=== PATIENT | female | born 1980 | race Caucasian/White ===

== ENCOUNTER 2021-02-05 10:45 | Inpatient (IN) | payer BC ==
[2021-02-13] MEDS ORDERED: Scopolamine 1.5 MG Transdermal Patch TOP ONE (06:24)
[2021-02-13] MEDS ORDERED: Celecoxib 200 MG Cap PO ONE (06:25)
[2021-02-13] MEDS ORDERED: Acetaminophen 500 MG Tab PO ONE (06:25)
[2021-02-13] MEDS ORDERED: Dextrose 5%-Lactated Ringers 1,000 ML IV SCH ×2 (06:30→11:30)
[2021-02-13] MEDS ORDERED: cefOXitin 2 GM Vial ONE (06:41)
[2021-02-13] MEDS ORDERED: Meropenem 500 MG SDV ONE (06:41)
[2021-02-13] MEDS ORDERED: cefOXitin 2 GM in Sodium Chloride 0.9% 50 ML IV ONE ×2 (07:00→08:00)
[2021-02-13] MEDS ORDERED: Ondansetron 4 MG/2 ML SDV ONE (07:08)
[2021-02-13] MEDS ORDERED: Neostigmine Methylsulfate 1 MG/ML 5 ML Syringe ONE (07:08)
[2021-02-13] MEDS ORDERED: Dexamethasone 4 MG/ML SDV ONE (07:08)
[2021-02-13] MEDS ORDERED: Succinylcholine 200 MG/10 ML MDV ONE (07:08)
[2021-02-13] MEDS ORDERED: Glycopyrrolate 0.2 MG/ML 5 ML MDV ONE (07:08)
[2021-02-13] MEDS ORDERED: fentaNYL 250 MCG/5 ML SDV ONE ×2 (07:08→08:25)
[2021-02-13] MEDS ORDERED: Rocuronium 50 MG/5 ML Vial ONE (07:08)
[2021-02-13] MEDS ORDERED: Propofol 200 MG/20 ML SDV ONE (07:08)
[2021-02-13] MEDS ORDERED: Ketamine 18 MG in Sodium Chloride 0.9% 19.82 ML IV SCH (08:00)
[2021-02-13] MEDS ORDERED: Ketamine 500 MG/5 ML MDV IV SCH (08:00)
[2021-02-13] MEDS ORDERED: Lactated Ringers 1,000 ML ONE (08:41)
[2021-02-13] MEDS ORDERED: Labetalol 20 MG/4 ML Syringe ONE (08:52)
[2021-02-13] MEDS ORDERED: CHECK SCOPOLAMINE PATCH TOP SCH (09:00)
[2021-02-13] MEDS ORDERED: Cyclobenzaprine 10 MG Tab PO PRN (11:29)
[2021-02-13] MEDS: hydrOXYzine HCL 100 MG/2 ML SDV IM PRN ×2 (11:38→19:40)
[2021-02-13] MEDS ORDERED: HYDROmorphone 0.5 MG/0.5 ML Syringe IVPUSH PRN (12:00)
[2021-02-13] MEDS ORDERED: traMADol 50 MG Tab PO PRN (12:00)
[2021-02-13] MEDS ORDERED: Metoclopramide 10 MG/2 ML SDV IVPUSH PRN (12:00)
[2021-02-13] MEDS ORDERED: HYDROmorphone 1 MG/ML Syringe IV PRN (12:00)
[2021-02-13] MEDS ORDERED: Ondansetron 4 MG/2 ML SDV IVPUSH PRN (12:00)
[2021-02-13] MEDS ORDERED: Acetaminophen 500 MG Tab PO PRN (12:00)
[2021-02-13] MEDS ORDERED: oxyCODONE 5 MG Tab PO PRN (12:00)
[2021-02-13] MEDS ORDERED: diphenhydrAMINE 50 MG/ML SDV IVPUSH PRN (12:00)
[2021-02-13] MEDS: Labetalol 20 MG/4 ML Syringe IVPUSH PRN ×2 (13:09→19:32)
[2021-02-13] MEDS ORDERED: Pantoprazole 40 MG Vial IVPUSH SCH (14:00)
[2021-02-13] MEDS: Acetaminophen 500 MG Tab PO SCH ×2 (14:10→21:26)
[2021-02-13] MEDS: cefOXitin 2 GM in Sodium Chloride 0.9% 50 ML IV SCH ×2 (14:10→19:21)
[2021-02-13] MEDS: MVI, Adult with Vitamin K 10 ML, Thiamine 200 MG, Zinc/Copper/Manganese/Selenium 1 ML i... IV SCH ×8 (14:10→15:00)
[2021-02-13] MEDS: Heparin Sodium 5,000 Units/ML Vial SUBCUT SCH (17:48)
[2021-02-13] MEDS: Pravastatin 20 MG Tab PO SCH (21:26)
[2021-02-14] MEDS: cefOXitin 2 GM in Sodium Chloride 0.9% 50 ML IV SCH ×3 (01:22→14:41)
[2021-02-14] MEDS: Dextrose 5%-Lactated Ringers 1,000 ML IV SCH ×2 (03:35→10:49)
[2021-02-14] MEDS: Acetaminophen 500 MG Tab PO SCH ×3 (05:09→21:00)
[2021-02-14] MEDS: Heparin Sodium 5,000 Units/ML Vial SUBCUT SCH ×2 (06:00→17:44)
[2021-02-14] MEDS ORDERED: Iopamidol 612 MG/ML 50 ML SDV PO STA (06:26)
[2021-02-14] MEDS ORDERED: Ondansetron 4 MG Tab.DIS PO PRN (06:27)
[2021-02-14] MEDS ORDERED: hydrOXYzine HCl 25 MG Tab PO PRN (06:27)
--- NOTE | 2021-02-14 07:06 | PN ---
DATE OF SERVICE: 02/14/2021 Angle is postop day 1 following a Merlene-en-Y gastric bypass surgery. The pain has been controlled per energy protocol. She did have a temp max of 101.4. It did go down to 101.1. She has no upper respiratory infection signs and symptoms. No burning with urination. Denies any source of infection when questioned. Oral intake was adequate. Output 2200. MECCA drain put out 40 mL. Remainder of review of systems negative for any pertinent positives or negatives. OBJECTIVE: Angle is a pleasant 40-year-old female. TPR per EMR. Computers were down. HEENT: Negative. NECK: Supple. HEART: Regular rate and rhythm. LUNGS: Clear. ABDOMEN: Dressings dry and intact. MECCA drain intact draining serosanguineous drainage. EXTREMITIES: Without peripheral edema. ASSESSMENT: Diagnostic laparoscopy with: 1. Laparoscopic Merlene-en-Y gastric bypass surgery. 2. Liver biopsy. 3. Repair of diaphragmatic hernia. 4. Excision of mediastinal lipoma. POSTOPERATIVE DIAGNOSES: 1. Morbid obesity. 2. Hepatomegaly. 3. Diaphragmatic hernia. 4. Mediastinal lipoma. PLAN: 1. Decrease IV to 100 mL per hour. 2. Step 2 gastric bypass diet with no cereal. 3. Atarax 50 mg q.4 hours p.r.n. pain per energy protocol. 4. Zofran 4 mg ODT q.4 hours p.r.n. nausea. 5. Communication order, 3 med cups per hour, record at bedside. 6. Dressing off may shower. 7. Continue use of incentive spirometer and ambulation. 8. We will evaluate p.r.n. or in a.m. Krystina Zhou PA-C /[id number]
[2021-02-14] MEDS: Celecoxib 200 MG Cap PO SCH ×2 (07:59→21:00)
[2021-02-14] MEDS: SCOPOLAMINE PATCH CHECK TOP SCH (07:59)
[2021-02-14] MEDS: Escitalopram 20 MG Tab PO SCH (07:59)
--- NOTE | 2021-02-14 09:48 | CR ---
[facility] HISTORY: Postbariatric surgery FINDINGS: Patient swallowed water-soluble contrast. Upright views of the abdomen show no evidence of extravasation or obstruction. There is a surgical drain in the left upper quadrant. IMPRESSION: Status post bariatric surgery No extravasation or obstruction seen
[2021-02-14] MEDS ORDERED: Pantoprazole 40 MG Delayed-Release Granules 1 Packet PO SCH (14:00)
[2021-02-14] MEDS ORDERED: MVI, Adult with Vitamin K 10 ML, Thiamine 200 MG, Zinc/Copper/Manganese/Selenium 1 ML i... IV SCH ×4 (16:00)
[2021-02-14] MEDS: Pravastatin 20 MG Tab PO SCH (21:00)
[2021-02-15] MEDS: Heparin Sodium 5,000 Units/ML Vial SUBCUT SCH (05:34)
[2021-02-15] MEDS: Acetaminophen 500 MG Tab PO SCH (05:34)
[2021-02-15] MEDS: SCOPOLAMINE PATCH CHECK TOP SCH (08:43)
[2021-02-15] MEDS: Celecoxib 200 MG Cap PO SCH (08:43)
[2021-02-15] MEDS: Escitalopram 20 MG Tab PO SCH (08:43)
[2021-02-15] MEDS ORDERED: Cyanocobalamin (Vitamin B12) 1,000 MCG/ML SDV IM ONE (09:00)
--- NOTE | 2021-02-16 00:27 | DISCH ---
ADMISSION DIAGNOSES: 1. Morbid obesity. 2. Body mass index 39. 3. Hyperlipidemia. 4. Essential hypertension. 5. Anxiety. 6. Depression. DISCHARGE DIAGNOSES: Diagnostic laparoscopy with: 1. Laparoscopic Merlene-en-Y gastric bypass surgery. 2. Liver biopsy. 3. Repair of diaphragmatic hernia. 4. Excision of mediastinal lipoma. POSTOPERATIVE DIAGNOSES: 1. Morbid obesity. 2. Hepatomegaly. 3. Diaphragmatic hernia. 4. Mediastinal lipoma. Date of procedure 02/13/2021. Surgeon: Jerry Romero MD. HISTORY: Angle Womack is a pleasant 40-year-old female with longstanding history of morbid obesity and increasing comorbidities. After preoperative evaluation and discussion of possible risks and possible complications, she wished to proceed with surgical procedure. HOSPITAL COURSE: Angle had her surgery on 02/13/2021. She did have an immediate postop fever of 101.4, did go to 101.1 in the first 24 hours. The rest of her vital signs were stable. IV was decreased. She was started on step 2 gastric bypass diet with no cereal and started on the 3 med cups every hour. On postop day 2, pain was controlled per energy protocol. She was afebrile. She received adequate dietary instruction. Activity good. Oral intake 3010. Urine output 5100. Angle was able to be discharged to home without any complications. PHYSICAL EXAMINATION: GENERAL: Angle is a 40-year-old female. VITAL SIGNS: Height 5 feet 7 inches, weight is 249, BMI is 39. TPR is 99.2, 85, 18, blood pressure 145/102. HEENT: Negative. NECK: Supple. HEART: Regular rate and rhythm. LUNGS: Clear. ABDOMEN: Dressings dry and intact. MECCA drain is intact, but will be removed. Abdominal binder is on. EXTREMITIES: Without peripheral edema. DISPOSITION: Discharged to home. CONDITION: Stable and improving. HOME MEDICATIONS: Tylenol 1000 mg every 8 hours scheduled for 2 to 3 days, then may decrease to p.r.n.; bupropion 75 mg p.o. b.i.d., #60 and 11 refills; to discontinue the Wellbutrin 150 XL; then Celebrex 200 mg p.o. b.i.d.; Lexapro 20 mg p.o. daily scheduled. Prescription for Zofran ODT 4 mg q.4 hours p.r.n. nausea, #30, sent to pharmacy. To resume on simvastatin 10 mg p.o. daily and HCTZ 25 mg. Instructed to watch for dehydration. FOLLOWUP: With Krystina Zhou PA-C, at [facility], 02/26/2021 at 10 a.m. DIET: Step 2 gastric bypass diet until 02/28/2021. ACTIVITY: No lifting greater than 10 pounds for 2 weeks. OTHER ACTIVITY: Walk 6 times daily inside your home. Driving: Do not drive for 1 week. Shower/bathing: May shower. Keep operative site clean and dry. Wear abdominal binder for 2 weeks and then as tolerated. Notify provider if any fever, increased pain, swelling, redness, drainage, nausea, or vomiting. SPECIAL INSTRUCTIONS: 1. Use incentive spirometer 10 times every hour while awake for 1 week. 2. Walk 3 minutes for every hour your riding in the car. /[id number]
--- NOTE | 2021-02-16 13:44 | OR ---
DATE OF PROCEDURE: 02/13/2021 SURGEON: Jerry Romero MD PREOPERATIVE DIAGNOSIS: Morbid obesity. POSTOPERATIVE DIAGNOSES: 1. Morbid obesity. 2. Marked hepatomegaly. 3. Paraesophageal diaphragmatic hernia. 4. Mediastinal lipoma. 5. Segment of stomach ischemic status post formation of pouch. OPERATIVE PROCEDURE: Diagnostic laparoscopy with: 1. Laparoscopic Merlene-en-Y gastric bypass with long-limb gastroenterostomy (46523). 2. Woodrow-Cut needle liver biopsy (05083). 3. Repair of paraesophageal diaphragmatic hernia (46991). 4. Excision of mediastinal lipoma (06966). 5. Partial gastrectomy (75347). ANESTHESIA: General. CHEMIST BIOLOGICAL: Krystina Zhou PA-C INDICATIONS FOR PROCEDURE: This is a 40-year-old presenting with longstanding morbid obesity including increasingly significant comorbidities. After preoperative evaluation and discussion, she wished to proceed with a gastric bypass procedure. Potential risks including bleeding, infection, leaks from any GI tract closures, problems with bowel obstruction over time as well as possibility of cardiopulmonary, septic, or hemorrhagic complications leading to were all discussed, and the patient wishes to proceed. DETAILS OF PROCEDURE: The patient was taken to the operating room and placed in a supine position. After general endotracheal anesthesia was induced, she was converted to a lithotomy position and the abdomen prepped and draped. At 15 cm inferior and 5 cm left of the xiphoid process, a transverse incision was made and the peritoneal cavity entered under direct vision with an Optiview trocar inflated to 15 mmHg pressure with CO2. Laparoscope was then reinserted. No underlying trocar insertion site injuries were seen. Bilateral transversus abdominis plane blocks were then placed and 5 additional trocars were placed across the upper and mid abdomen. The patient was noted to have marked hepatomegaly with the liver being 2 to 3 times normal size and grossly fatty infiltrated. Woodrow-Cut needle biopsies were obtained from the left lobe of the liver. Minimal bleeding from the biopsy sites was controlled with electrocautery. At this point, the omentum was divided in the midline up to the level of the transverse colon. This allowed identification of the small bowel to the ligament of Treitz. The small bowel was then traced out 125 cm distal to that point where it was divided with the NO stapler. Small bowel was then traced out additional 150 cm where the [id number] enteroenterostomy was accomplished with internal firing of the Endo-NO 60 mm stapler. Common opening was then closed transversely with the same stapler, angles anastomosed, and mesenteric defect approximated with some 0 Ethibond stitch along with 4 mL of fibrin sealant. The divided end of the Merlene limb then came up to the level of the esophagogastric junction via an antecolic approach without difficulty. At this point, the liver was retracted anteriorly. The patient was noted to have a moderate- sized paraesophageal diaphragmatic hernia. This was reduced and the peritoneum overlying incised. During the course of the crural dissection, a mediastinal lipoma was encountered and this was excised facilitating a more adequate closure of the diaphragmatic crura which was then accomplished with some 0 Ethibond sutures reinforced with PTFE pledgets anteriorly. At this point, the gastrointestinal balloon catheter was inflated to 15 mL and pulled up snugly against the EG junction. The gastric wall over the apex balloon was then marked with electrocautery, the balloon catheter deflated and pulled up into the esophagus. The lesser omental tissue adjacent to the gastric cardia was then incised allowing dissection behind the stomach at that level. Pouch formation was initiated with transverse firing of the NO stapler at the level of the cauterized sree in the gastric cardia and continued up to and through the angle of His with additional NO staple lines. Upon completion of the pouch, the patient was noted to have an area of ischemia within the bypassed portion of the stomach and the apex of the fundus. This was resected with a NO stapler as well and sent as a separate specimen. The anvil of a 25 mm EEA stapler was then attached to a Ector sump type tube. The latter was brought down through the mouth and taken out through a small opening in the gastric pouch, allowing the anvil likewise to be pulled down to within the gastric pouch. The divided end of Merlene limb was then opened and the main body of EEA stapler passed several centimeters in the lumen of small bowel, brought up the anvil and united with it, thus creating the gastrojejunostomy. Upon removal of the stapler, double donuts of mucosa were noted within it. Small bowel was closed off with a vascular staple line. Gastrojejunostomy was reinforced with some 3-0 Vicryl seromuscular stitch along with fibrin sealant. Leak test was accomplished with injection of 120 mL of air in the gastric pouch while submerged with a cefoxitin-containing saline solution, no leaks were identified. A single Elder- Edwards drain was then taken out through the left lateral trocar site and positioned adjacent to gastrojejunostomy, from there up into the splenic fossa. The trocars were then sequentially removed and the incision closed with some 4-0 Vicryl skin stitch and drain affixed with 4-0 Vicryl stitch as well. The patient was taken to the recovery room in satisfactory condition with no evident complications. Physician assistant professor of biochemistry, Krystina Zhou, played an essential role in assisting in this case, helping to position the patient, retract structures as needed as well as suturing and cutting sutures when indicated. Her presence improved patient safety and decreased the operative time. Jerry Romero MD /[id number]
== END 2021-02-15 11:50 | disposition home or self-care (01) | DRG 403 ==
LOC: JP.SDS 02-13 05:58 → EDSTATUS 02-13 08:45 → JP.MS 02-13 09:40
PROVIDERS: ADMIT Surgery; ATTEND Surgery
PROC: 0D164ZA Bypass Stomach to Jejunum, Percutaneous Endoscopic Approach (ICD-10-PCS; principal; 2021-02-13)
PROC: 0FB24ZX Excision of Left Lobe Liver, Percutaneous Endoscopic Approach, Diagnostic (ICD-10-PCS; 2021-02-13)
PROC: 0DB64ZZ Excision of Stomach, Percutaneous Endoscopic Approach (ICD-10-PCS; 2021-02-13)
PROC: 0BQT4ZZ Repair Diaphragm, Percutaneous Endoscopic Approach (ICD-10-PCS; 2021-02-13)
PROC: 0JB63ZZ Excision of Chest Subcutaneous Tissue and Fascia, Percutaneous Approach (ICD-10-PCS; 2021-02-13)
DX: E66.01 Morbid (severe) obesity due to excess calories (principal); K55.051 Focal (segmental) acute (reversible) ischemia of intestine, part unspecified; Z68.39 Body mass index [BMI] 39.0-39.9, adult; E78.5 Hyperlipidemia, unspecified; I10 Essential (primary) hypertension; F41.9 Anxiety disorder, unspecified; F32.A Depression, unspecified; R16.0 Hepatomegaly, not elsewhere classified; R50.9 Fever, unspecified; K44.9 Diaphragmatic hernia without obstruction or gangrene; D17.1 Benign lipomatous neoplasm of skin and subcutaneous tissue of trunk; Z91.09 Other allergy status, other than to drugs and biological substances
CPT/HCPCS: 36415; 74240; 74240-26; 80048; 80053; 81025; 83735; 84100; 85027; 86850; 86900; 86901; 88304; 88305; 88307; 88313; 94762; A9270-GY; C9113; J0171; J0330; J0694; J1100; J1644; J2185; J2405; J2704; J2710; J2795; J3010; J3410; J3411; J3420; J3490; J7120; J7121; Q9967